=== PATIENT | male | born 1975 | race Caucasian/White ===

== ENCOUNTER → 2024-03-28 15:15 | Outpatient (CLI) | payer OTHER, SELFPAY ==
[2024-03-28 17:10] LABS: Add Manual Diff / Slide Review NO; Basophils Absolute Auto 0 /uL (0-100); Basophils Percent Auto 0.4 % (0-2); Eosinophils Absolute Auto 100 /uL (0-450); Eosinophils Percent Auto 0.9 % (2-4); Hematocrit 43.7 % (41-53); Lymphocytes Absolute Auto 2200 /uL (1100-4500); Lymphocytes Percent Auto 28.2 % (25-40); Mean Corpuscular HGB Conc 34.3 % (30-36); Mean Corpuscular Hemoglobin 30.1 PG (26-34); Mean Corpuscular Volume 87.6 fL (80-100); Monocytes Absolute Auto 600 /uL (0-900); Monocytes Percent Auto 7.6 % (3-14); Neutrophils Absolute Auto 4900 /uL (1500-7000); Neutrophils Percent Auto 62.9 % (50-75); Platelet Count 275 X10^3/uL (150-400); Red Blood Cell Count 4.98 X10^6/uL (4.5-5.9); Red Cell Distribution Width 13.3 % (11.6-14.8); White Blood Cell Count 7.9 X10^3/uL (4.5-11.0)
[2024-03-28 18:52] LABS: Hemoglobin A1C% w Est Avg Glu 5.5 % (4.0-6.0)
== END ==
PROVIDERS: Referring Provider Orthopaedic Surgery Adult Reconstructive Orthopaedic Surgery; Visit Provider Orthopaedic Surgery Adult Reconstructive Orthopaedic Surgery
DX: Z01.812 Encounter for preprocedural laboratory examination (principal); R73.9 Hyperglycemia, unspecified
CPT/HCPCS: 36415; 83036; 85025

== ENCOUNTER 2025-09-04 06:07 | Inpatient (IN) | payer OTHER, SELFPAY ==
[2025-08-26 08:49] VITALS: BMI 29.6
--- NOTE | 2025-09-04 | DI.RAD.S_ITS ---
PROCEDURE: XR KNEE LT 1TO2V INDICATIONS: POST OP LEFT KNEE REVISION TECHNIQUE: 2 view(s) of the knee acquired. COMPARISON: None. FINDINGS: Bones: Patient is status post knee joint arthroplasty. Hardware components are in expected positions. Visualized bony structures are intact. Soft tissues: Overlying postoperative changes are noted. IMPRESSION: Expected post-operative appearance of a knee arthroplasty. Dictated by: Joaquin Hobbs M.D. on 09/04/2025 at 10:35 Approved by: Joaquin Hobbs M.D. on 09/04/2025 at 10:35
[2025-09-04 06:51] VITALS: BP 144/86; PULSE 67; RESP 16; TEMP 36.2; O2SAT 98
[2025-09-04] MEDS: ACETAMINOPHEN 325 MG TABLET 975 MG PO (07:03)
[2025-09-04] MEDS: MELOXICAM 7.5 MG TABLET 15 MG PO (07:04)
[2025-09-04] MEDS: GABAPENTIN 300 MG CAPSULE PO (07:04)
[2025-09-04] MEDS: LACTATED RINGERS 1,000 ML 42 ML IV (07:04)
--- NOTE | 2025-09-04 07:44 | PM.PREOP ---
Pre-operative Note Interval Note History & Physical reviewed/Exam performed by Physician: Yes Changes to H&P: No
[2025-09-04] MEDS: TRANEXAMIC ACID 2,000 MG in SODIUM CHLORIDE 0.9% 100 ML 200 MG IV ×2 (08:14→09:06)
--- NOTE | 2025-09-04 08:23 | SUR.OPER ---
Supine on padded OR bed. Pillow under head, arms secured on padded armboards <90 degree abduction. Safety belt across torso. Non-operative leg secured with tape over blanket over lower leg. Operative leg secured in DeMayo/Gurpreet/Nathe positioner. Foam padded brace at thigh of operative leg.
[2025-09-04] MEDS: KETOROLAC 30 MG/ML VIAL 15 MG INJ (08:39)
--- NOTE | 2025-09-04 09:27 | P.OP_ITS ---
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 Post-op diagnosis: same Procedure & Clinicians Procedure: Revision of left total knee arthroplasty with exchange of polyethylene insert and retention of femoral and tibial components Same procedure(s) as scheduled: Yes Surgeon: Guillaume Hannon Assisted?: Yes Manager Summer: Harriett Mattson Anesthesia Type: Spinal, Sedation, Peripheral nerve block and Local Operative Notes Findings: Midflexion instability Closure Type: primary Specimen(s): none sent Applied: implant(s) Estimated Blood Loss (mL): 50 Tourniquet time (min): 38 Procedure in detail: Polyethylene exchange of left total knee arthroplasty from 14 mm insert to 18 mm insert for mid flexion instability Implants: * Size 18 Medial Congruent Polyethylene Insert Procedure Summary from Primary Surgery: Procedure Summary for Today: This 49-year-old male patient underwent a primary total knee arthroplasty from [place] with the description above with regards to his stability during the procedure. He has had persistent mid flexion instability which has bothered him significantly. He notes feeling unsteady when doing high-level activities such as climbing ladders or hiking and therefore has been dissatisfied with the total knee. I had numerous discussions with him about this since the initial surgery and explained to him that with upsizing of his polyethylene insert I anticipated that I could improve his sensation of stability during mid flexion. I had chosen the polyethylene insert that I did based on concerns that a larger size my limited his terminal knee flexion. His range of motion preoperatively was excellent with approximately 140? of flexion and so I anticipated that the flexion gap would accommodate a larger size insert without affecting his terminal range of motion. During today's procedure this was what I found. Removed the 14 mm insert and elected to reinsert a 18 mm insert. This allowed full extension whereas a 20 mm insert did not. It dramatically improved his mid flexion stability. Procedure in Detail: This patient was seen preoperatively and evaluated for knee pain which was refractory to numerous nonoperative treatment modalities. The risks and benefits of continued nonoperative management versus operative management were discussed at length and all of the patient?s questions were answered. Additional educational materials providing further details beyond our discussion in clinic were provided via a publicly available patient education video which included the incidence of medical complications associated with total knee arthroplasty, reasons for revision following total knee arthroplasty, and patient satisfaction rates following total knee arthroplasty. With this understanding of the risks inherent to the procedure, the patient elected to move forward with operative management. Following preoperative optimization, the patient was scheduled for surgery. The patient was met in the preoperative holding area the day of the procedure and all questions were answered. The patient?s nares were swabbed in order to decolonize them from MRSA. Informed consent was signed and the laterality limb was marked with indelible ink.? The patient was brought back to the operating room where anesthesia was induced. The patient was transferred to the operating table and all bony prominences were padded. The operative site was prepped and draped in the usual sterile fashion. A second prep stick was utilized following drape placement. The incision was marked corresponding to the medial aspect of the tibial tubercle and the patella. Ioban was wrapped circumferentially around the knee. Prior to incision, tranexamic acid and cefazolin were administered. Templating images were displayed. A timeout procedure was performed verifying the patient?s identity, medical comorbidities, allergies, relevant medications, anesthesia type and the surgical plan. All present were in agreement. The assistance of a physician clothing sales assistant was required for positioning, room setup, soft tissue retraction and wound closure. Without this assistance, the procedure would have been significantly more challenging and time consuming.?? The tourniquet was inflated prior to incision. I made an anterior incision over the knee, dissected through the subcutaneous tissues and identified the lateral border of the VMO. Medial and lateral soft tissue flaps were developed. A mid- vastus arthrotomy was performed ensuring that adequate capsular tissue would remain for closure at the conclusion of the procedure. The knee was brought into extension and the medial soft tissues were released off the joint line of the tibia. Tissue overlying the distal anterior femur was released to allow for later assessment for anterior notching but left in place. A portion of the retropatellar fat pad was excised while protecting the patellar tendon. The patella was everted. The patella was not resurfaced. Tested the knee and noted that it had full extension without hyperextension but significant varus and valgus opening in mid flexion. While anesthetized prior to incision I had noted that knee flexion was essentially unlimited and was restricted by his heel impacting his buttock. Dissected scar in order to obtain access to the dovetail locking mechanism of the tibial component. I removed the polyethylene insert and confirmed that it was a 14 mm and inspected it for wear. There was no wear. I confirmed that the tibial and femoral components were well fixed. I trialed polyethylene inserts and found that a 16 improved his stability considerably. An 18 resulted in inability to open the knee with either varus or valgus stress in mid flexion. It was just short of full extension and I was able to break through some of the posterior capsular scar by pushing on the knee in order to get it to a position where it would rest in full extension. Flexion was unlimited as it had been with the smaller inserts. I trialed a 20 mm insert and found that the knee could not fully extend. I therefore proceeded with an 18 mm insert. I inserted the final polyethylene and ensured appropriate engagement of the dovetail locking mechanism.?? The arthrotomy was closed with non-absorbable interrupted suture ensuring that this extended to the top of the arthrotomy. This was backed up with running barbed suture throughout the arthrotomy. The skin was closed with 2-0 and 3-0 sutures. Surgical glue was applied and a soft dressing was placed.?The sponge, instrument and needle counts were reported as being correct at the end of the case. The patient was transferred from the operating table back to a stretcher. The patient emerged from anesthesia without difficulty and was taken to the PACU in a stable condition.? Plan for aftercare: * Weightbearing as tolerated * Aspirin 81 twice per day for DVT prophylaxis * Multimodal pain regimen with no IV opioids ordered * Lisha wound VAC to remain in place for 2 weeks. The battery will after a week at which point the cord can be removed * Cefadroxil for periprosthetic joint infection prophylaxis * TXA for 3 days for swelling prevention * Anticipate discharge home later today * Follow up at [facility] in 2 weeks for wound check Complications: none Post-operative Condition: stable Disposition: same day surgery
[2025-09-04 09:45] VITALS: BP 118/60; PULSE 64; RESP 20; TEMP 36; O2SAT 95
[2025-09-04 09:55] VITALS: BP 125/72; PULSE 54; RESP 20; O2SAT 96
[2025-09-04 10:00] VITALS: BP 127/74; PULSE 62; RESP 20; TEMP 36.1; O2SAT 97
[2025-09-04 10:07] VITALS: BP 118/68; PULSE 51; RESP 15; TEMP 36.1; O2SAT 97
[2025-09-04 12:20] VITALS: BP 143/84; PULSE 57; RESP 22; O2SAT 98
== END 2025-09-04 13:21 | disposition home or self-care (01) | DRG 325 ==
PROVIDERS: Admitting Provider Orthopaedic Surgery Adult Reconstructive Orthopaedic Surgery; PCP Family Medicine; Referring Provider Orthopaedic Surgery Adult Reconstructive Orthopaedic Surgery; Visit Provider Orthopaedic Surgery Adult Reconstructive Orthopaedic Surgery
PROC: 0SPD09Z Removal of Liner from Left Knee Joint, Open Approach (ICD-10-PCS; principal; 2025-09-04 07:45)
DX: T84.023A Instability of internal left knee prosthesis, initial encounter (principal); Y79.2 Prosthetic and other implants, materials and accessory orthopedic devices associated with adverse incidents; Z98.890 Other specified postprocedural states; Z86.79 Personal history of other diseases of the circulatory system; Y99.0 Civilian activity done for income or pay
CPT/HCPCS: 73560; C1776; J0689; J1885; J2250; J2405; J2704; J3010; J7050; J7120